=== PATIENT | male | born 1970 | race Two or more races ===

== ENCOUNTER 2020-07-31 12:15 | Inpatient (IN) | payer OTHER ==
[~2020-07-31] VITALS: Ht 180.3 cm; Wt 131.5 kg
== END 2020-08-10 19:12 | disposition home or self-care (01) | DRG 330 ==
LOC: SURG 08-07 09:48 → O/R 08-07 09:48 → SURH 08-07 12:15 → SURG 08-07 16:24 → SURH 08-07 18:15 → SURG 08-10 19:12
PROVIDERS: ADMIT Colon & Rectal Surgery; ATTEND Colon & Rectal Surgery
PROC: 0DTP4ZZ Resection of Rectum, Percutaneous Endoscopic Approach (ICD-10-PCS; 2020-08-07)
PROC: 0DBN4ZZ Excision of Sigmoid Colon, Percutaneous Endoscopic Approach (ICD-10-PCS; principal; 2020-08-07 18:15)
DX: K57.32 Diverticulitis of large intestine without perforation or abscess without bleeding (principal); K92.1 Melena; Z68.41 Body mass index [BMI] 40.0-44.9, adult; K64.9 Unspecified hemorrhoids; K57.30 Diverticulosis of large intestine without perforation or abscess without bleeding; E66.01 Morbid (severe) obesity due to excess calories; J44.9 Chronic obstructive pulmonary disease, unspecified; J45.20 Mild intermittent asthma, uncomplicated; F17.200 Nicotine dependence, unspecified, uncomplicated

== ENCOUNTER 2020-10-19 16:17 | Emergency (ER) | payer OTHER ==
[~2020-10-19] VITALS: Ht 180.3 cm; Wt 127.0 kg
== END 2020-10-19 19:15 | disposition home or self-care (01) ==
LOC: ER 16:17
DX: R10.31 Right lower quadrant pain (principal)